=== PATIENT | female | born 2000 | race Caucasian/White ===

== ENCOUNTER 2024-08-24 11:36 | Emergency (ER) | payer OTHER ==
[~2024-08-24] VITALS: Ht 152.4 cm; Wt 54.1 kg
[2024-08-24 13:27] VITALS: BP 128/65; TEMP 96.5; O2SAT 97
== END 2024-08-24 15:06 | disposition short-term general hospital (02) ==
LOC: M ED 11:36
DX: S01.111A Laceration without foreign body of right eyelid and periocular area, initial encounter (principal); Y92.9 Unspecified place or not applicable; Y93.63 Activity, rugby; Y99.9 Unspecified external cause status; F17.290 Nicotine dependence, other tobacco product, uncomplicated; F12.10 Cannabis abuse, uncomplicated; F10.10 Alcohol abuse, uncomplicated